=== PATIENT | female | born 1950 | race Caucasian/White ===

== ENCOUNTER 2021-07-21 11:03 | Emergency (ER) | payer MEDICARE ==
[~2021-07-21] VITALS: Ht 160 cm; Wt 99.8 kg
[2021-07-21] MEDS ORDERED: METF500 PO (11:22)
[2021-07-21] MEDS ORDERED: LOSA25 PO (11:23)
[2021-07-21] MEDS ORDERED: HYDCHL12.5 PO (11:23)
[2021-07-21] MEDS ORDERED: INSULANI SC (11:23)
[2021-07-21] MEDS ORDERED: Cymbalta20 MG PO (11:24)
[2021-07-21] MEDS ORDERED: DILT30 PO (11:24)
[2021-07-21] MEDS ORDERED: HYDR1TAB94 PO (13:45)
== END 2021-07-21 14:25 | disposition home or self-care (01) ==
LOC: ER 11:03
DX: S02.2XXA Fracture of nasal bones, initial encounter for closed fracture (principal); S80.02XA Contusion of left knee, initial encounter; S80.01XA Contusion of right knee, initial encounter; S00.03XA Contusion of scalp, initial encounter; E11.9 Type 2 diabetes mellitus without complications; Z79.4 Long term (current) use of insulin; Z88.0 Allergy status to penicillin; Z88.2 Allergy status to sulfonamides; Z79.899 Other long term (current) drug therapy; X58.XXXA Exposure to other specified factors, initial encounter
CPT/HCPCS: 70450; 72125; 73562-LT; 73610; 99284-25; A9270